=== PATIENT | male | born 1970 | race African-American/Black ===

== ENCOUNTER 2017-03-13 03:44 | Emergency (ER) | payer MEDICARE, OTHER ==
[~2017-03-13] VITALS: Ht 165.1 cm; Wt 77.3 kg
[~2017-03-13 03:44] MED LIST: ELVI1TAB PO; EMTR1TAB10; OXYC30TA PO
[2017-03-13 03:58] VITALS: Ht 165.1 cm; Wt 77.3 kg
[2017-03-13] MEDS ORDERED: CETI10CA PO (06:25)
[2017-03-13] MEDS ORDERED: BEN25 PO (06:25)
[2017-03-13] MEDS ORDERED: VIGA BOTH EYES (06:25)
[2017-03-13] MEDS ORDERED: HC30CR25 TOP (06:25)
--- NOTE | 2017-03-13 08:29 | ERD ---
ER Documentation Chief Complaint Chief Complaint body rash x 3 weeks HPI 47-year-old male presents with generalized itching to the face, and red eyes with watering for the past 2-3 weeks. Patient states that they have been staying at different motel rooms, developed this. Chief complaint is mostly itching, also watering to both eyes, and some yellow drainage to both eyes. Patient reports that he at times wears contacts. Denies visual changes. No trouble swallowing, voice changes, drooling. ROS All systems reviewed and are negative except as per history of present illness. Medications Home Meds Active Scripts Hydrocortisone* Topical (Hydrocortisone* Topical) 2.5%-28.3 Gm Cream..g., 1 APPLIC TOP BID, #1 TUB Prov:KATIA BOX PA-C 03/13/17 Cetirizine Hcl* (Zyrtec*) 10 Mg Capsule, 10 MG PO DAILY, #10 TAB.CHEW Prov:KATIA BOX PA-C 03/13/17 Diphenhydramine Hcl* (Benadryl*) 25 Mg Cap, 25 MG PO Q6, #30 CAP Prov:KATIA BOX PA-C 03/13/17 Moxifloxacin Hcl* (Vigamox*) 0.5% - 3 Ml Opht, 1 DROP BOTH EYES TID for 7 Days, EA Prov:KATIA BOX PA-C 03/13/17 Reported Medications Bcrmlhscoifzg-Csuoyagzbee-Nuizrngsx (Complera) 1 Each Tablet, 1 DAILY 01/15/14 Elvitegr/Cobicist/Emtric/Tenof (STRIBILD TABLET) 1 Each Tablet, 1 EACH PO DAILY 12/26/13 Oxycodone Hcl* (IR) (Oxycodone Hcl*) 30 Mg Tablet, 60 MG PO Q4H Y for PAIN, TAB 12/26/13 Allergies Allergies: Coded Allergies: ibuprofen (Verified Allergy, Mild, 08/16/14) sulfamethoxazole (Verified Allergy, Unknown, rash, 08/16/14) trimethoprim (Verified Allergy, Unknown, rash, 08/16/14) PMhx/Soc History of Surgery: Yes (COSMETIC SURGERY) Anesthesia Reaction: No Hx Neurological Disorder: No Hx Respiratory Disorders: No Hx Cardiac Disorders: No (stent in heart) Hx Psychiatric Problems: No Hx Miscellaneous Medical Probl: Yes (HIV POSITIVE, lumbar disk pain) Hx Alcohol Use: No Hx Substance Use: No Hx Tobacco Use: Yes Smoking Status: Current every day smoker Physical Exam Vitals Vital Signs Date Time Temp Pulse Resp B/P Pulse Ox O2 Delivery O2 Flow Rate FiO2 03/13/17 03:58 98.4 86 20 145/94 100 Physical Exam General: Well-developed, well-nourished. The patient appears in no acute distress. HEENT: Head is normocephalic, atraumatic. No scleral icterus. Conjunctival injection, there is watering. Extraocular movements intact, eyes are [place]. Neck: Supple. Nontender. Lungs: Clear to auscultation. Normal air movement. Heart: Regular rate and rhythm. S1 and S2 are normal. No murmurs, gallops, or rubs. Abdomen: Nondistended. Extremities: No clubbing or cyanosis. Moving extremities x 4. No weakness. Neurologic: Alert and oriented 3. No focal deficits. Normal speech and gait. Skin: Normal turgor. No rash or lesions. Procedures/MDM 47-year-old male will be given treatment for dermatitis of the face, and conjunctivitis. There is no evidence of periorbital swelling, or history concerning for retinal detachment, corneal abrasion, ulceration, which was hemorrhage, ophthalmologic emergency. Patient is currently requesting something stronger for itching on the face and hydrocortisone, the patient is -Citizen Of [place], and advised that there might be some hypopigmentation skin discoloration from certain corticosteroids and apply topically. Will advise to apply hydrocortisone 2.5% and take Benadryl for itching. There is a history of watering with drainage to both eyes, patient will be given Vigamox eyedrops. Departure Diagnosis: Primary Impression: Dermatitis Additional Impression: Conjunctivitis Condition: Good Patient Instructions: Dermatitis, Non-Specific KATIA BOX PA-C Mar 13, 2017 08:29
== END 2017-03-13 06:46 | disposition home or self-care (01) ==
LOC: FTE 03:44
DX: L30.9 Dermatitis, unspecified (principal); H10.9 Unspecified conjunctivitis; F17.210 Nicotine dependence, cigarettes, uncomplicated; Z98.61 Coronary angioplasty status
CPT/HCPCS: 99283

== ENCOUNTER 2017-11-11 03:34 | Emergency (ER) | END 2017-11-11 04:46 | disposition home or self-care (01) ==

== ENCOUNTER 2018-02-15 03:23 | Emergency (ER) | END 2018-02-15 04:33 | disposition left against medical advice (07) ==